=== PATIENT | male | born 1960 | race American Indian/Alaskan Native ===

== ENCOUNTER 2020-11-26 11:12 | Emergency (ER) | payer MEDICARE ==
[2020-11-26] MEDS ORDERED: ASPIRIN 325 MG TAB PO ONE (11:27)
--- NOTE | 2020-11-26 12:00 | XRay Report ---
XR chest routine 2V INDICATION / CLINICAL INFORMATION: CP WITH SOB COMPARISON: None available. FINDINGS: SUPPORT DEVICES: None. HEART / MEDIASTINUM: No significant abnormality. LUNGS / PLEURA: Lungs are clear. Costophrenic sulci are sharp. No pneumothorax. ADDITIONAL FINDINGS: No significant additional findings. IMPRESSION: 1. No acute findings. Signer Name: Sher Mcmullen MD Signed: 11/26/2020 11:55 AM Workstation Name: [id number]
[2020-11-26 13:12] LABS: Basophils # (Auto) 0.2 K/mm3 (0.0-0.1); Basophils % (Auto) 2.2 % (0.0-1.8); Eosinophils # (Auto) 0.3 K/mm3 (0.0-0.4); Eosinophils % (Auto) 3.7 % (0.0-4.3); Hematocrit 39.5 % (35.5-45.6); Hemoglobin 13.2 gm/dl (11.8-15.2); Lymphocytes # (Auto) 2.2 K/mm3 (1.2-5.4); Lymphocytes % (Auto) 31.4 % (13.4-35.0); Mean Corpuscular HGB Conc 34 % (32-34); Mean Corpuscular Volume 95 fl (84-94); Monocytes # (Auto) 0.4 K/mm3 (0.0-0.8); Monocytes % (Auto) 6.3 % (0.0-7.3); Platelet Count 185 K/mm3 (140-440); Red Blood Count 4.15 M/mm3 (3.65-5.03); Red Cell Distribution Width 15.3 % (13.2-15.2)
[2020-11-26 13:23] LABS: INR 1.09 (0.87-1.13)
[2020-11-26 13:24] LABS: Alanine Aminotransferase 11 units/L (7-56); Albumin 4.3 g/dL (3.9-5); BUN/Creatinine Ratio 16; Blood Urea Nitrogen 13 mg/dL (9-20); Calcium 8.7 mg/dL (8.4-10.2); Hemolysis Index 2
--- NOTE | 2020-11-26 17:39 | Event Note ---
ED Screening Note Date of service: 11/26/20 Time: 17:37 ED Screening Note: 60-year-old male patient with history of hypertension, hyperlipidemia, diabetes, and asthma presents to the emergency department with complaints of chest tightness radiating to his right upper extremity starting this morning. No known history of stroke or MT. Takes aspirin daily. States he has been compliant with his diabetes medications. General: Awake, appropriately interactive, no acute distress. Neck: Supple. Full range of motion intact. Cardiovascular: Normal peripheral perfusion. Pulmonary: No respiratory distress. Patient is speaking normally without use of accessory muscles. Skin: No apparent rashes or lesions. Neurological: No facial asymmetry. Speech is clear. Follows commands. Patient is alert and oriented. Musculoskeletal: Moves all four extremities spontaneously with normal range of motion. Psych: Cooperative. Appropriate mood and affect. EKG, labs, aspirin, and chest x-ray ordered by assembler surgical garment prior to MSE. I have greeted and performed a focused rapid initial assessment of this patient. A comprehensive ED assessment and evaluation of the patient, analysis of all test results, and completion of the medical decision-making process will be conducted by additional ED providers. This initial assessment/diagnostic orders/clinical plan/treatment(s) is/are subject to change based on patients health status, clinical progression and re-assessment. Further treatment and workup at subsequent clinical provider's discretion. Patient/guardian urged not to elope from the ED as their condition may be serious if not clinically assessed and managed.
--- NOTE | 2020-11-27 01:41 | Emergency Department Report ---
ED Shortness of Breath HPI - General Chief Complaint: Dyspnea/Respdistress Stated Complaint: SOB Time Seen by Provider: 11/27/20 01:30 Source: patient, EMS Mode of arrival: Ambulatory Limitations: No Limitations - History of Present Illness Initial Comments: 60-year-old male, history of hypertension, diabetes, asthma, presents to ED with shortness of breath since yesterday morning. She reports wheezing and chest tightness that he feels is related to his asthma. Patient states he ran out of his albuterol and Atrovent. States it was supposed to have been filled at [facility], however his prescriptions were transferred to another pharmacy and he was unable to pick his medications up. Patient denies any cough or fever, leg pain or swelling. Patient states he has not yet received his COVID-19 vaccine. Patient has been in the waiting room x14 hours. States he is feeling better at this time. MD Complaint: shortness of breath -: days(s) (1) Severity: moderate Consistency: now resolved Improves With: rest Worsens With: exertion Known History Of: asthma Treatments Prior to Arrival: none - Related Data Allergies Allergy/AdvReac Type Severity Reaction Status Date / Time Penicillins Allergy Shortness Verified 11/26/20 11:26 of Breath ED Review of Systems ROS: Stated complaint: SOB Other details as noted in HPI Comment: All other systems reviewed and negative Constitutional: denies: chills, fever Respiratory: shortness of breath, wheezing. denies: cough ED Past Medical Hx - Past Medical History Hx Hypertension: Yes Hx Congestive Heart Failure: Yes Hx Diabetes: Yes Hx Asthma: Yes - Surgical History Additional Surgical History: THROAT - Social History Smoking Status: Never Smoker Substance Use Type: None ED Physical Exam - General Limitations: No Limitations General appearance: alert, in no apparent distress - Head Head exam: Present: atraumatic, normocephalic - Eye Eye exam: Present: normal appearance, EOMI - ENT ENT exam: Present: mucous membranes moist - Neck Neck exam: Present: normal inspection - Respiratory Respiratory exam: Present: normal lung sounds bilaterally. Absent: respiratory distress - Cardiovascular Cardiovascular Exam: Present: regular rate, normal rhythm - GI/Abdominal GI/Abdominal exam: Present: soft. Absent: distended, tenderness - Extremities Exam Extremities exam: Present: normal inspection - Neurological Exam Neurological exam: Present: alert, oriented X3, other (Tremor noted to the right upper extremity) - Psychiatric Psychiatric exam: Present: normal affect, normal mood - Skin Skin exam: Present: warm, dry, intact, normal color ED Course Vital Signs 11/26/20 11/27/20 11:21 01:56 Temperature 98.8 F Pulse Rate 85 72 Respiratory 20 17 Rate Blood Pressure 127/69 Blood Pressure 135/70 [Left] O2 Sat by Pulse 99 97 Oximetry ED Medical Decision Making - Lab Data Result diagrams: 11/26/20 12:33 11/26/20 12:33 - EKG Data -: EKG Interpreted by Pr EKG shows normal: sinus rhythm, axis, intervals, QRS complexes, ST-T waves Rate: normal - EKG Data Interpretation: no acute changes, other (Old anterior infarct, PVCs present) - Radiology Data Radiology results: report reviewed, image reviewed - Medical Decision Making 60-year-old male presents to ED with wheezing and chest tightness secondary to his asthma. Patient is feeling much better at this time. Lung sounds are clear. Patient is in no respiratory distress. O2 sats are normal. Chest x-ray and labs, including troponin x3, are unremarkable. Patient will be discharged at this time. Patient reports he currently has a prescription being filled for albuterol. States he has to pick it up from the pharmacy. Return precautions given. - Differential Diagnosis Asthma, ACS, pneumonia Critical care attestation.: If time is entered above; I have spent that time in minutes in the direct care of this critically ill patient, excluding procedure time. ED Disposition Clinical Impression: Asthma Disposition: DC-01 TO HOME OR SELFCARE Is pt being admited?: No Condition: Stable Instructions: Asthma, Adult, Asthma (ED) Referrals: PRIMARY MD STACIE [Primary Care Provider] - 3-5 Days [facility] [Provider Group] - 3-5 Days Time of Disposition: 02:00
[2020-11-27 01:59] VITALS: BP 135/70
--- NOTE | 2020-11-27 09:43 | Electrocardiograph Report ---
[facility] Test Date: 2020-11-26 Test Time: 11:26:38 Pat Name: NATALIE GOMEZ Department: Room: Gender: M Brand Coordinator: NITIN : 1960 Requested By: ED DOC Order Number: [id number] Reading MD: Philip Rivera Measurements Intervals [place] Rate: 86 P: 54 [place]: 179 QRS: -19 QRSD: 101 T: 60 QT: 396 QTc: 475 Interpretive Statements Sinus rhythm Multiple ventricular premature complexes Probable left atrial enlargement Anterior infarct, old No previous ECG available for comparison Electronically Signed On 11-27-2020 9:43:05 EDT by Philip Rivera
== END 2020-11-27 02:48 | disposition home or self-care (01) ==
LOC: ED 11:12
DX: J45.909 Unspecified asthma, uncomplicated (principal); I10 Essential (primary) hypertension; E11.8 Type 2 diabetes mellitus with unspecified complications; I50.9 Heart failure, unspecified; Z98.890 Other specified postprocedural states
CPT/HCPCS: 36415; 71046; 80053; 83880; 84484; 85025; 85610; 93005; 99284

== ENCOUNTER 2021-07-24 09:15 | Observation (INO) | payer MEDICARE ==
[2021-07-24] MEDS ORDERED: SODIUM CHLORIDE 0.9% 500 ML 500 ML IV ONE (09:46)
--- NOTE | 2021-07-24 09:53 | Emergency Department Report ---
ED General Adult HPI - General Chief complaint: Hyperglycemia Stated complaint: HYPERGLYCEMIA Source: EMS Mode of arrival: Ambulatory Limitations: No Limitations - History of Present Illness Initial comments: Patient is a 60-year-old male with past medical history of CHF, previous pericardial effusion requiring pericardiocentesis, diabetes who presents emergency department with complaint of hyperglycemia in the setting of being out of his insulin medication for the past few months. Patient also has a history of schizophrenia. He notes he also has some mild shortness of breath but denies any leg swelling recently. He is not currently having chest pain. Severity scale (0 -10): 0 - Related Data Home Medications Medication Instructions Recorded Confirmed Last Taken Albuterol Sulfate [Proair 90 mcg IH Q6H PRN 07/24/21 07/24/21 Unknown Digihaler] Amiodarone HCl [Amiodarone 100 MG 400 mg PO 07/24/21 Unknown TAB] Amlodipine Besylate [Norvasc] 10 mg PO 07/24/21 Unknown Apixaban [Eliquis] 5 mg PO BID 07/24/21 07/24/21 Unknown Atorvastatin [Lipitor Tab] 40 mg PO QHS 07/24/21 07/24/21 Unknown Brimonidine Tartrate [Brimonidine 1 drop OD Q8HR 07/24/21 07/24/21 Unknown Tartrate 0.2%] Indomethacin [Indocin] 25 mg PO BID 07/24/21 07/24/21 Unknown Allergies Allergy/AdvReac Type Severity Reaction Status Date / Time Penicillins Allergy Shortness Verified 07/24/21 09:37 of Breath ED Review of Systems ROS: Stated complaint: HYPERGLYCEMIA Other details as noted in HPI Constitutional: denies: chills, fever Eyes: denies: eye pain, eye discharge, vision change ENT: denies: ear pain, throat pain Respiratory: SOB at rest. denies: cough, shortness of breath, wheezing Cardiovascular: denies: chest pain Endocrine: no symptoms reported Gastrointestinal: denies: abdominal pain, nausea, vomiting Genitourinary: denies: urgency, dysuria Musculoskeletal: denies: back pain, joint swelling, arthralgia Skin: as per HPI Neurological: denies: headache, weakness, paresthesias Psychiatric: denies: anxiety, depression Hematological/Lymphatic: denies: easy bleeding, easy bruising ED Past Medical Hx - Past Medical History Hx Hypertension: Yes Hx Congestive Heart Failure: Yes Hx Diabetes: Yes Hx Asthma: Yes - Surgical History Additional Surgical History: THROAT - Social History Smoking Status: Never Smoker Substance Use Type: None - Medications Home Medications: Home Medications Medication Instructions Recorded Confirmed Last Taken Type Albuterol Sulfate [Proair 90 mcg IH Q6H PRN 07/24/21 07/24/21 Unknown History Digihaler] Amiodarone HCl [Amiodarone 100 MG 400 mg PO 07/24/21 Unknown History TAB] Amlodipine Besylate [Norvasc] 10 mg PO 07/24/21 Unknown History Apixaban [Eliquis] 5 mg PO BID 07/24/21 07/24/21 Unknown History Atorvastatin [Lipitor Tab] 40 mg PO QHS 07/24/21 07/24/21 Unknown History Brimonidine Tartrate [Brimonidine 1 drop OD Q8HR 07/24/21 07/24/21 Unknown History Tartrate 0.2%] Indomethacin [Indocin] 25 mg PO BID 07/24/21 07/24/21 Unknown History ED Physical Exam - General Limitations: No Limitations General appearance: alert, in no apparent distress - Head Head exam: Present: atraumatic, normocephalic - Eye Eye exam: Present: normal appearance - ENT ENT exam: Present: mucous membranes moist - Neck Neck exam: Present: normal inspection - Respiratory Respiratory exam: Present: normal lung sounds bilaterally. Absent: respiratory distress - Cardiovascular Cardiovascular Exam: Present: regular rate, normal rhythm. Absent: systolic murmur, diastolic murmur, rubs, gallop - GI/Abdominal GI/Abdominal exam: Present: soft, normal bowel sounds - Rectal Rectal exam: Present: deferred - Extremities Exam Extremities exam: Present: normal inspection - Back Exam Back exam: Present: normal inspection - Neurological Exam Neurological exam: Present: alert, oriented X3 - Psychiatric Psychiatric exam: Present: normal affect, normal mood - Skin Skin exam: Present: warm, dry, intact, normal color. Absent: rash ED Course Vital Signs 07/24/21 07/24/21 07/24/21 09:20 09:26 09:29 Temperature 98.4 F Pulse Rate 101 H 94 H 91 H Respiratory 18 15 Rate Blood Pressure Blood Pressure 116/70 [Left] O2 Sat by Pulse 97 Oximetry 07/24/21 07/24/21 07/24/21 10:01 11:01 11:47 Temperature Pulse Rate 87 84 Respiratory 18 16 Rate Blood Pressure 100/66 117/72 Blood Pressure [Left] O2 Sat by Pulse 92 96 96 Oximetry 07/24/21 07/24/21 07/24/21 12:01 14:01 16:01 Temperature Pulse Rate 82 82 88 Respiratory 20 19 21 Rate Blood Pressure 119/79 119/79 117/76 Blood Pressure [Left] O2 Sat by Pulse 92 94 92 Oximetry 07/24/21 07/24/21 07/24/21 18:01 20:01 20:58 Temperature 98.4 F Pulse Rate 84 79 Respiratory 14 16 Rate Blood Pressure 109/72 105/72 Blood Pressure [Left] O2 Sat by Pulse 94 94 Oximetry - Reevaluation(s) Reevaluation #1: 07/24/21 11:30 Patient's chest x-ray does not show any evidence of pulmonary edema. There is no obvious lower extremity edema. I will give an additional 500 cc of IV fluids. Patient's blood sugar is in the 700s. He has an elevated anion gap but his CO2 is 22. We are still pending a venous pH. I have ordered subcu insulin and a repeat [id number] blood sugar after the first set of fluids. Patient likely to be admitted for further management. 07/24/21 13:15 I discussed with hospitalist who recommended starting an insulin drip for likely HHS. Patient to be admitted. ICU. ED Medical Decision Making - Lab Data Result diagrams: 07/24/21 10:13 07/24/21 23:33 - EKG Data -: EKG Interpreted by [facility] EKG shows normal: sinus rhythm Rate: normal No standard instances Omro/QRS: left axis deviation Qtc: prolonged - EKG Data Interpretation: other - Radiology Data Radiology results: report reviewed, image reviewed - Medical Decision Making This is a 60-year-old male with history of diabetes here with hyperglycemia. Patient has not had his insulin in the past few days. He also has history of CHF and pericardial effusion requiring pericardiocentesis. Plan for full cardiac exam given history of CHF and pericardial effusion. We will also evaluate for possible DKA versus HHS versus hyperglycemia. We will start gentle fluid bolus prior to labs. Disposition pending work-up. Critical care attestation.: If time is entered above; I have spent that time in minutes in the direct care of this critically ill patient, excluding procedure time. ED Disposition Clinical Impression: Hyperglycemia, Weakness Disposition: 09 ADMITTED INPATIENT Is pt being admited?: Yes Does the pt Need Aspirin: No Condition: Stable
[2021-07-24 10:51] LABS: Basophils # (Auto) 0.1 K/mm3 (0.0-0.1); Basophils % (Auto) 1.2 % (0.0-1.8); Eosinophils # (Auto) 0.7 K/mm3 (0.0-0.4); Eosinophils % (Auto) 7.9 % (0.0-4.3); Hematocrit 34.4 % (35.5-45.6); Lymphocytes # (Auto) 1.4 K/mm3 (1.2-5.4); Lymphocytes % (Auto) 17.4 % (13.4-35.0); Mean Corpuscular HGB Conc 32 % (32-34); Mean Corpuscular Volume 96 fl (84-94); Monocytes # (Auto) 0.5 K/mm3 (0.0-0.8); Monocytes % (Auto) 5.7 % (0.0-7.3); Platelet Count 380 K/mm3 (140-440); Red Blood Count 3.58 M/mm3 (3.65-5.03); Red Cell Distribution Width 19.3 % (13.2-15.2)
[2021-07-24 11:05] LABS: Alanine Aminotransferase 9 units/L (7-56); Albumin 3.6 g/dL (3.9-5); BUN/Creatinine Ratio 19; Blood Urea Nitrogen 21 mg/dL (9-20); Calcium 9.4 mg/dL (8.4-10.2); Hemolysis Index 9
[2021-07-24] MEDS ORDERED: MAGNESIUM SULFATE 2 GM/50 ML BAG IV ONE (11:25)
[2021-07-24] MEDS ORDERED: INSULIN NPH/REGULAR 70/30 INJ SUB-Q ONE (12:00)
--- NOTE | 2021-07-24 12:19 | XRay Report ---
CHEST 1 VIEW INDICATION: sob. COMPARISON: 11/26/2020 FINDINGS: Support devices: None. Heart: Mild cardiomegaly, new since the previous exam. Lungs/Pleura: The right lung and left upper lobe are clear. There is poor visualization of the left l ower lobe due to the heart. Small left lower lobe opacity or small left pleural effusion cannot be en tirely excluded. No pneumothorax. Additional findings: None. IMPRESSION: New mild cardiomegaly. Possible small infiltrate/atelectasis or effusion at the left lung base. Signer Name: Jamir Wood Jr, MD Signed: 07/24/2021 12:10 PM Workstation Name: [id number]
[2021-07-24] MEDS ORDERED: DEXTROSE 50% IN WATER (25GM) 50 ML SYRINGE IV PRN (12:36)
[2021-07-24] MEDS ORDERED: INSULIN REGULAR, HUMAN 100 UNITS in SODIUM CHLORIDE 0.9% 99 ML IV SCH (13:00)
[2021-07-24] MEDS ORDERED: D5W/0.45% NACL/KCL 20 MEQ 20 MEQ/1,000 ML BAG IV SCH ×2 (13:00→23:00)
[2021-07-24 13:18] LABS: Bilirubin,Urine NEG (Negative); Blood,Urine NEG (Negative); Color,Urine Straw (Yellow); Mucus,Urine FEW /HPF; Protein,Urine <15 mg/dL mg/dL (Negative); Urobilinogen,Urine < 2.0 mg/dL (<2.0); WBC,Urine < 1.0 /HPF (0.0-6.0)
[2021-07-24 14:00] LABS: BUN/Creatinine Ratio 19; Blood Urea Nitrogen 21 mg/dL (9-20); Calcium 9.6 mg/dL (8.4-10.2); Hemolysis Index 3
[2021-07-24 15:23] LABS: BUN/Creatinine Ratio 21; Blood Urea Nitrogen 21 mg/dL (9-20); Calcium 9.5 mg/dL (8.4-10.2); Hemolysis Index 22
--- NOTE | 2021-07-24 16:33 | History and Physical Report ---
History of Present Illness Date of examination: 07/24/21 Date of admission: 07/24/2021 Chief complaint: Complains of high blood glucose levels and nausea and weakness for 1 week History of present illness: 60-year-old male with history of hypertension, congestive heart failure, insulin-dependent diabetes and asthma comes into emergency room for feeling weak and nauseous. Also high blood glucose levels of more 500 100s meter. Feels thirsty and increasing urination. Nausea present but no vomiting. Feels very weak. No fever or chills. Not taking his insulin for the last couple of weeks. - Past Medical History --Hypertension: Yes --Congestive Heart Failure: Yes --Diabetes: Yes --Asthma: Yes - Surgical History --Additional Surgical History: THROAT - Social History --Smoking Status: Never Smoker --Substance Use Type: None Review of Systems ROS: Stated complaint: HYPERGLYCEMIA Other details as noted in HPI Constitutional: denies: chills, fever Eyes: denies: eye pain, eye discharge, vision change ENT: denies: ear pain, throat pain Respiratory: SOB at rest. denies: cough, shortness of breath, wheezing Cardiovascular: denies: chest pain Endocrine: no symptoms reported Gastrointestinal: denies: abdominal pain, nausea, vomiting Genitourinary: denies: urgency, dysuria Musculoskeletal: denies: back pain, joint swelling, arthralgia Skin: as per HPI Neurological: denies: headache, weakness, paresthesias Psychiatric: denies: anxiety, depression Hematological/Lymphatic: denies: easy bleeding, easy bruising Medications and Allergies Allergies Allergy/AdvReac Type Severity Reaction Status Date / Time Penicillins Allergy Shortness Verified 07/24/21 09:37 of Breath Home Medications Medication Instructions Recorded Confirmed Last Taken Type Albuterol Sulfate [Proair 90 mcg IH Q6H PRN 07/24/21 07/24/21 Unknown History Digihaler] Amiodarone HCl [Amiodarone 100 MG 400 mg PO 07/24/21 Unknown History TAB] Amlodipine Besylate [Norvasc] 10 mg PO 07/24/21 Unknown History Apixaban [Eliquis] 5 mg PO BID 07/24/21 07/24/21 Unknown History Atorvastatin [Lipitor Tab] 40 mg PO QHS 07/24/21 07/24/21 Unknown History Brimonidine Tartrate [Brimonidine 1 drop OD Q8HR 07/24/21 07/24/21 Unknown History Tartrate 0.2%] Indomethacin [Indocin] 25 mg PO BID 07/24/21 07/24/21 Unknown History Active Meds: Active Medications Dextrose (Dextrose 50% In Water (25gm) 50 Ml Syringe) 0 ml IV Q30MIN PRN; Protocol PRN Reason: Hypoglycemia Insulin Human Regular 100 (units/ Sodium Chloride) 100 mls @ 1 mls/hr IV TITR WAI; Protocol Last Titration: 07/24/21 15:42 Dose: 8 units/hr, 8 mls/hr Potassium Chloride/Dextrose/Sod Cl (D5w/0.45% Nacl/Kcl 20 Meq) 20 meq in 1,000 mls @ 125 mls/hr IV DIRECT [facility]AI Exam - Constitutional Vitals: Temp Pulse Resp BP Pulse Ox 98.4 F 82 19 119/79 94 07/24/21 09:20 07/24/21 14:01 07/24/21 14:01 07/24/21 14:01 07/24/21 14:01 General appearance: Present: no acute distress, well-nourished - EENT Eyes: Present: PERRL ENT: hearing intact, clear oral mucosa, other (Dry mucous membranes) - Neck Neck: Present: supple, normal ROM - Respiratory Respiratory effort: normal Respiratory: bilateral: CTA - Cardiovascular Heart rate: 98 Rhythm: regular Heart Sounds: Present: S1 & S2. Absent: rub, click - Extremities Extremities: pulses symmetrical, No edema Peripheral Pulses: within normal limits - Abdominal General gastrointestinal: Present: soft, non-tender, non-distended, normal bowel sounds Male genitourinary: Present: normal - Integumentary Integumentary: Present: clear, warm, dry - Musculoskeletal Musculoskeletal: gait normal, strength equal bilaterally - Psychiatric Psychiatric: appropriate mood/affect, intact judgment & insight - Neurologic Neurologic: CNII-XII intact, moves all extremities, gait normal HEART Score - HEART Score Troponin: Troponin T < 0.010 ng/mL (0.00-0.029) 07/24/21 10:13 Results - Labs CBC & Chem 7: 07/24/21 10:13 07/24/21 23:33 Labs: Laboratory Last Values WBC 8.3 K/mm3 (4.5-11.0) 07/24/21 10:13 RBC 3.58 M/mm3 (3.65-5.03) L 07/24/21 10:13 Hgb 11.0 gm/dl (11.8-15.2) L 07/24/21 10:13 Hct 34.4 % (35.5-45.6) L 07/24/21 10:13 MCV 96 fl (84-94) H 07/24/21 10:13 MCH 31 pg (28-32) 07/24/21 10:13 MCHC 32 % (32-34) 07/24/21 10:13 RDW 19.3 % (13.2-15.2) H 07/24/21 10:13 Plt Count 380 K/mm3 (140-440) 07/24/21 10:13 Lymph % (Auto) 17.4 % (13.4-35.0) 07/24/21 10:13 [place] % (Auto) 5.7 % (0.0-7.3) 07/24/21 10:13 Eos % (Auto) 7.9 % (0.0-4.3) H 07/24/21 10:13 Baso % (Auto) 1.2 % (0.0-1.8) 07/24/21 10:13 Lymph # (Auto) 1.4 K/mm3 (1.2-5.4) 07/24/21 10:13 [place] # (Auto) 0.5 K/mm3 (0.0-0.8) 07/24/21 10:13 Eos # (Auto) 0.7 K/mm3 (0.0-0.4) H 07/24/21 10:13 Baso # (Auto) 0.1 K/mm3 (0.0-0.1) 07/24/21 10:13 Seg Neutrophils % 67.8 % (40.0-70.0) 07/24/21 10:13 Seg Neutrophils # 5.6 K/mm3 (1.8-7.7) 07/24/21 10:13 VBG pH 7.409 (7.320-7.420) 07/24/21 12:17 Sodium 134 mmol/L (137-145) L 07/24/21 14:56 Potassium 4.5 mmol/L (3.6-5.0) 07/24/21 14:56 Chloride 96.2 mmol/L (98-107) L 07/24/21 14:56 Carbon Dioxide 23 mmol/L (22-30) 07/24/21 14:56 Anion Gap 19 mmol/L 07/24/21 14:56 BUN 21 mg/dL (9-20) H 07/24/21 14:56 Creatinine 1.0 mg/dL (0.8-1.3) 07/24/21 14:56 Estimated GFR > 60 ml/min 07/24/21 14:56 BUN/Creatinine Ratio 21 % 07/24/21 14:56 Glucose 573 mg/dL (75-100) H* 07/24/21 14:56 POC Glucose 456 mg/dL (70-105) H 07/24/21 15:37 Ketones Quantitative Negative (Negative) 07/24/21 10:13 Calcium 9.5 mg/dL (8.4-10.2) 07/24/21 14:56 Phosphorus 3.50 mg/dL (2.5-4.5) 07/24/21 12:57 Magnesium 2.30 mg/dL (1.7-2.3) 07/24/21 12:57 Total Bilirubin 0.20 mg/dL (0.1-1.2) 07/24/21 10:13 AST 10 units/L (5-40) 07/24/21 10:13 ALT 9 units/L (7-56) 07/24/21 10:13 Alkaline Phosphatase 97 units/L (35-129) 07/24/21 10:13 Troponin T < 0.010 ng/mL (0.00-0.029) 07/24/21 10:13 NT-Pro-B Natriuret Pep 70.66 pg/mL (0-900) 07/24/21 10:13 Total Protein 7.4 g/dL (6.3-8.2) 07/24/21 10:13 Albumin 3.6 g/dL (3.9-5) L 07/24/21 10:13 Albumin/Globulin Ratio 0.9 % 07/24/21 10:13 Urine Color Straw (Yellow) 07/24/21 13:02 Urine Turbidity Clear (Clear) 07/24/21 13:02 Urine pH 6.0 (5.0-7.0) 07/24/21 13:02 Ur Specific [place] 1.028 (1.003-1.030) 07/24/21 13:02 Urine Protein <15 mg/dl mg/dL (Negative) 07/24/21 13:02 Urine Glucose (UA) >=500 mg/dL (Negative) 07/24/21 13:02 Urine Ketones Neg mg/dL (Negative) 07/24/21 13:02 Urine Blood Neg (Negative) 07/24/21 13:02 Urine Nitrite Neg (Negative) 07/24/21 13:02 Urine Bilirubin Neg (Negative) 07/24/21 13:02 Urine Urobilinogen < 2.0 mg/dL (<2.0) 07/24/21 13:02 Ur Leukocyte Esterase Neg (Negative) 07/24/21 13:02 Urine WBC (Auto) < 1.0 /HPF (0.0-6.0) 07/24/21 13:02 Urine RBC (Auto) 2.0 /HPF (0.0-6.0) 07/24/21 13:02 U Epithel Cells (Auto) < 1.0 /HPF (0-13.0) 07/24/21 13:02 Urine Mucus Few /HPF 07/24/21 13:02 Short CBC 07/24/21 Range/Units 10:13 WBC 8.3 (4.5-11.0) K/mm3 Hgb 11.0 L (11.8-15.2) gm/dl Hct 34.4 L (35.5-45.6) % Plt Count 380 (140-440) K/mm3 BMP 07/24/21 07/24/21 07/24/21 10:13 12:57 14:56 Sodium 130 L 133 L 134 L Potassium 4.8 4.9 4.5 Chloride 92.2 L 94.8 L 96.2 L Carbon Dioxide 22 23 23 BUN 21 H 21 H 21 H Creatinine 1.1 1.1 1.0 Glucose 711 H* 620 H* 573 H* Calcium 9.4 9.6 9.5 07/24/21 07/24/21 19:01 23:33 Sodium 140 141 Potassium 3.7 4.1 Chloride 102.7 104.0 Carbon Dioxide 24 26 BUN 23 H 24 H Creatinine 1.0 1.0 Glucose 143 H 263 H Calcium 9.8 8.7 Cardiac Enzymes 07/24/21 Range/Units 10:13 Troponin T < 0.010 (0.00-0.029) ng/mL Liver Function 07/24/21 Range/Units 10:13 Total Bilirubin 0.20 (0.1-1.2) mg/dL AST 10 (5-40) units/L ALT 9 (7-56) units/L Alkaline Phosphatase 97 (35-129) units/L Albumin 3.6 L (3.9-5) g/dL Urine 07/24/21 Range/Units 13:02 Urine Color Straw (Yellow) Urine pH 6.0 (5.0-7.0) Ur Specific [place] 1.028 (1.003-1.030) Urine Protein <15 mg/dl (Negative) mg/dL Urine Glucose (UA) >=500 (Negative) mg/dL - Imaging and Cardiology Imaging and Cardiology: Chest x-ray New mild cardiomegaly. Possible small infiltrates/atelectasis or effusion at the left lung base. Assessment and Plan Assessment and plan: Critical care statement The high probability OF a clinically significant sudden or life-threatening de terioration of the cardiorespiratory system and endocrine system required my full and direct attention, intervention and postoperative management. The aggregate critical care time was 40 minutes. The time is in addition to time spent performing reported procedures but includes the followin: Data review and interpretation 2: Patient assessment and monitoring of vital signs 3: Documentation 4:: Medication orders and management Advance Directives: Yes (Full code) VTE prophylaxis?: Chemical Plan of care discussed with patient/family: Yes - Patient Problems (1) Hyperosmolar non-ketotic state due to type 2 diabetes mellitus Current Visit: Yes Status: Acute Plan to address problem: Blood glucose levels of 711 No ketones Anion gap is 21 Sodium is 130 IV insulin and IV fluids Patient to be started on long-acting and short acting insulin Defer to the primary care team Check A1c (2) Hyponatremia Current Visit: Yes Status: Acute Plan to address problem: Should correct with correction of blood glucose levels (3) Hypomagnesemia Current Visit: Yes Status: Acute Plan to address problem: Supplemented (4) Malnutrition Current Visit: Yes Status: Chronic Qualifiers: Protein-calorie malnutrition severity: mild Plan to address problem: Albumin of 3.6 Dietary supplement X1 (5) DVT prophylaxis Current Visit: Yes Status: Acute Plan to address problem: On anticoagulation GI prophylaxis (6) Advance care planning Current Visit: Yes Status: Acute Plan to address problem: Disease education conducted: Care plan discussed, diagnosis discussed, prognosis discussed. Patient is full code. Patient acknowledges understanding and agreement with care plan. +30 minutes.
[2021-07-24] MEDS ORDERED: ACETAMINOPHEN 325 MG TAB PO PRN (16:35)
[2021-07-24] MEDS ORDERED: METOCLOPRAMIDE 10 MG/2 ML INJ IV PRN (16:35)
[2021-07-24] MEDS ORDERED: ONDANSETRON 4 MG/2 ML INJ IV PRN (16:35)
[2021-07-24] MEDS ORDERED: MORPHINE 2 MG/1 ML INJ IV PRN (16:35)
[2021-07-24] MEDS ORDERED: D5W/0.9% NACL 1,000 ML IV SCH (18:00)
[2021-07-24 19:31] LABS: BUN/Creatinine Ratio 23; Blood Urea Nitrogen 23 mg/dL (9-20); Calcium 9.8 mg/dL (8.4-10.2); Hemolysis Index 8
[2021-07-24] MEDS: FAMOTIDINE 20 MG/2 ML INJ IV SCH (23:19)
[2021-07-24] MEDS: HEPARIN 5,000 UNIT/1 ML VIAL SUB-Q SCH (23:40)
[2021-07-25 00:08] LABS: BUN/Creatinine Ratio 24; Blood Urea Nitrogen 24 mg/dL (9-20); Calcium 8.7 mg/dL (8.4-10.2); Hemolysis Index 5
[2021-07-25] MEDS ORDERED: MAGNESIUM SULFATE 2 GM/50 ML BAG IV ONE (06:27)
[2021-07-25 06:30] LABS: Alanine Aminotransferase 7 units/L (7-56); Albumin 3.3 g/dL (3.9-5); BUN/Creatinine Ratio 28; Blood Urea Nitrogen 22 mg/dL (9-20); Calcium 8.3 mg/dL (8.4-10.2); Hemolysis Index 3
[2021-07-25] MEDS ORDERED: INSULIN GLARGINE 100 UNITS/ML SUB-Q SCH (09:00)
--- NOTE | 2021-07-25 09:17 | Electrocardiograph Report ---
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
--- NOTE | 2021-07-25 09:29 | Discharge Summary ---
Providers - Providers Date of Admission: 07/24/21 16:35 Date of discharge: 07/25/21 Attending physician: MARINA BURT MD 07/24/21 12:36 Consult to Dietitian/Nutrition [CONS] Routine Physician Instructions: Reason For Exam: DKA Reason for Consult: Nutrition Recommendations Reason for Consult: Diet education Consult to Physician [CONS] Routine Comment: Consulting Provider: ISIAH FULLER Physician Instructions: Reason For Exam: ICU for HHS Hospitalization Condition: Stable Hospital course: This is a 60-year-old male with HTN, CHF, asthma, diabetes, schizoaffective disorder, depression and asthma who presented to the emergency department on 07/24 with complaints of high blood glucose levels, nausea, polydipsia and polyuria and weakness for a week and indicated that he did not take his insulin for the past couple weeks. Work-up in the emergency department showed lab work consistent with HHNK started on insulin drip and admitted to the ICU with c onsult to [facility]. This morning patient's anion gap is closed and has been transitioned to SSI, long-acting insulin/CC diet. Patient will be discharged today. He will need to follow-up with his PCP, mental health provider, vocal teacher. He will need to resume his home medications. A/P Neuro: h/o schizoaffective disorder, depression -Resume home antipsychotics and antidepressants -Follow-up with mental provider as needed Cardio: h/o CHF, HTN -Resume home cardioprotective and antihypertensive regimen. -Follow-up with PCP/vocal teacher -Blood pressure monitoring per PCP instruction Respiratory: h/o asthma -Resume home pulmonary regimen -Follow-up with organic preparation technician GI: Protein calorie malnutrition -Resume cardiac consistent carbohydrate diet Endo: s/p HHNK, h/o IDDM, ?hypothyriodism -Lantus 20 units every AM -Blood glucose monitoring per PCP instructions -Resume home ?Synthroid (pt states he uses synthriod but not listed in home meds record) -Encourage medical compliance -Follow up with PCP Disposition: HOME / SELF CARE / HOMELESS Final Discharge Diagnosis (Prints w/discharge instructions): HHNK Time spent for discharge: 45 Core Measure Documentation - Palliative Care Palliative Care/ Comfort Measures: Not Applicable - Core Measures Any of the following diagnoses?: history only Exam - Constitutional Vitals: Temp Pulse Resp BP Pulse Ox 97.7 F 70 16 118/70 95 07/25/21 08:04 07/25/21 07:20 07/25/21 07:20 07/25/21 07:20 07/25/21 07:20 General appearance: Present: no acute distress - EENT Eyes: Present: PERRL, EOM intact ENT: hearing intact, clear oral mucosa, dentition normal - Neck Neck: Present: normal ROM - Respiratory Respiratory effort: normal Respiratory: bilateral: CTA - Cardiovascular Rhythm: regular Heart Sounds: Present: S1 & S2. Absent: systolic murmur, diastolic murmur - Extremities Extremities: no ischemia, pulses intact, pulses symmetrical, No edema, normal temperature, normal color, Full ROM Peripheral Pulses: within normal limits - Abdominal General gastrointestinal: Present: soft, non-tender, non-distended, normal bowel sounds - Integumentary Integumentary: Present: warm, dry - Musculoskeletal Musculoskeletal: strength equal bilaterally - Psychiatric Psychiatric: appropriate mood/affect, cooperative - Neurologic Neurologic: CNII-XII intact, no focal deficits, moves all extremities - Allied Health Allied health notes reviewed: nursing, RT, social work Plan Activity: advance as tolerated Diet: low cholesterol, low salt, diabetic, low carbohydrate Special Instructions: record daily weights, record daily BP diary, record blood sugar diary [facility] - 3-5 Days Prescriptions: Insulin Glargine [Lantus VIAL] 20 units SUB-Q QAMDIAB #1 vial Syringe & Needle,Insulin,1 ml [Ultra Comfort] 1 each MC BID #60 Other Discharge Orders: Glucometer (Amb) Location: None Selected Glucometer supplies[Amb] Location: None Selected Test Strips for Blood Sugar Monitoring Location: None Selected
[2021-07-25] MEDS: FAMOTIDINE 20 MG/2 ML INJ IV SCH (09:33)
[2021-07-25] MEDS: HEPARIN 5,000 UNIT/1 ML VIAL SUB-Q SCH (09:33)
--- NOTE | 2021-07-25 11:18 | Consultation ---
History of Present Illness - Reason for Consult Consult date: 07/25/21 HHNK Requesting physician: ANASTASIA KEBEDE - History of Present Illness 60 y/o male with known Diabetes and CHF admitted via ED yesterday for HHNK and need for insulin drip. ER did not want to aggressively hydrate given history of CHF so gave one bolus and then started on IV insulin. This am off drip, sugars are better and discharge summary has been started by IMS. Past History Past Medical History: diabetes, heart failure, hypertension Medications and Allergies Allergies Allergy/AdvReac Type Severity Reaction Status Date / Time Penicillins Allergy Shortness Verified 07/24/21 09:37 of Breath Home Medications Medication Instructions Recorded Confirmed Last Taken Type Albuterol Sulfate [Proair 90 mcg IH Q6H PRN 07/24/21 07/24/21 Unknown History Digihaler] Amiodarone HCl [Amiodarone 100 MG 400 mg PO 07/24/21 Unknown History TAB] Amlodipine Besylate [Norvasc] 10 mg PO 07/24/21 Unknown History Apixaban [Eliquis] 5 mg PO BID 07/24/21 07/24/21 Unknown History Atorvastatin [Lipitor] 40 mg PO QHS 07/24/21 07/24/21 Unknown History Brimonidine Tartrate [Brimonidine 1 drop OD Q8HR 07/24/21 07/24/21 Unknown History Tartrate 0.2%] Active Meds: Active Medications Acetaminophen (Acetaminophen 325 Mg Tab) 650 mg PO Q4H PRN PRN Reason: Pain MILD(1-3)/Fever >100.5/RICHARD Dextrose (Dextrose 50% In Water (25gm) 50 Ml Syringe) 0 ml IV Q30MIN PRN; Protocol PRN Reason: Hypoglycemia Famotidine (Famotidine 20 Mg/2 Ml Inj) 20 mg IV BID [facility] Last Admin: 07/25/21 09:33 Dose: 20 mg Heparin Sodium (Porcine) (Heparin 5,000 Unit/1 Ml Vial) 5,000 unit SUB-Q Q12HR [facility] Last Admin: 07/25/21 09:33 Dose: 5,000 unit Insulin Human Regular 100 (units/ Sodium Chloride) 100 mls @ 1 mls/hr IV TITR [facility]; Protocol Stop: 07/25/21 12:00 Last Titration: 07/25/21 08:14 Dose: 2 units/hr, 2 mls/hr Potassium Chloride/Dextrose/Sod Cl (D5w/0.45% Nacl/Kcl 20 Meq) 20 meq in 1,000 mls @ 125 mls/hr IV DIRECT [facility] Stop: 07/25/21 12:00 Last Admin: 07/24/21 23:19 Dose: 125 mls/hr Insulin Glargine (Insulin Glargine 100 Units/Ml) 20 units SUB-Q QAMDIAB [facility] Last Admin: 07/25/21 09:33 Dose: 20 units Insulin Human Lispro (Insulin Lispro 100 Unit/Ml) 0 unit SUB-Q ACHS [facility]; Protocol Metoclopramide HCl (Metoclopramide 10 Mg/2 Ml Inj) 10 mg IV Q6H PRN PRN Reason: Nausea And Vomiting Morphine Sulfate (Morphine 2 Mg/1 Ml Inj) 2 mg IV Q4H PRN PRN Reason: Pain, Moderate (4-6) Ondansetron HCl (Ondansetron 4 Mg/2 Ml Inj) 4 mg IV Q3H PRN PRN Reason: Nausea And Vomiting Sodium Chloride (Sodium Chloride 0.9% 10 Ml Flush Syringe) 10 ml IV BID [facility] Last Admin: 07/25/21 10:18 Dose: 10 ml Sodium Chloride (Sodium Chloride 0.9% 10 Ml Flush Syringe) 10 ml IV PRN PRN PRN Reason: LINE FLUSH Review of Systems All systems: negative Exam - Constitutional Vitals: Temp Pulse Resp BP Pulse Ox 97.7 F 76 17 114/66 93 07/25/21 08:04 07/25/21 10:10 07/25/21 10:10 07/25/21 10:10 07/25/21 10:10 General appearance: Present: no acute distress - EENT ENT: hearing intact - Neck Neck: Present: supple, normal ROM - Respiratory Respiratory effort: normal Respiratory: bilateral: CTA - Cardiovascular Rhythm: regular Results - Labs CBC & Chem 7: 07/24/21 10:13 07/25/21 05:40 Labs: Abnormal lab results 07/24/21 07/24/21 07/24/21 Range/Units 10:13 12:57 14:31 Sodium 133 L (137-145) mmol/L Chloride 94.8 L (98-107) mmol/L BUN 21 H (9-20) mg/dL Glucose 711 H* 620 H* (75-100) mg/dL POC Glucose 541 H (70-105) mg/dL Calcium (8.4-10.2) mg/dL Albumin (3.9-5) g/dL 07/24/21 07/24/21 07/24/21 Range/Units 14:56 15:37 16:43 Sodium 134 L (137-145) mmol/L Chloride 96.2 L (98-107) mmol/L BUN 21 H (9-20) mg/dL Glucose 573 H* (75-100) mg/dL POC Glucose 456 H 330 H (70-105) mg/dL Calcium (8.4-10.2) mg/dL Albumin (3.9-5) g/dL 07/24/21 07/24/21 07/24/21 Range/Units 18:24 19:01 20:43 Sodium (137-145) mmol/L Chloride (98-107) mmol/L BUN 23 H (9-20) mg/dL Glucose 143 H (75-100) mg/dL POC Glucose 115 H 182 H (70-105) mg/dL Calcium (8.4-10.2) mg/dL Albumin (3.9-5) g/dL 07/24/21 07/24/21 07/24/21 Range/Units 21:34 22:34 23:33 Sodium (137-145) mmol/L Chloride (98-107) mmol/L BUN 24 H (9-20) mg/dL Glucose 263 H (75-100) mg/dL POC Glucose 179 H 235 H (70-105) mg/dL Calcium (8.4-10.2) mg/dL Albumin (3.9-5) g/dL 07/24/21 07/25/21 07/25/21 Range/Units 23:36 00:29 01:29 Sodium (137-145) mmol/L Chloride (98-107) mmol/L BUN (9-20) mg/dL Glucose (75-100) mg/dL POC Glucose 241 H 232 H 238 H (70-105) mg/dL Calcium (8.4-10.2) mg/dL Albumin (3.9-5) g/dL 03/11/22 03/11/22 03/11/22 Range/Units 02:31 03:38 04:37 Sodium (137-145) mmol/L Chloride (98-107) mmol/L BUN (9-20) mg/dL Glucose (75-100) mg/dL POC Glucose 187 H 149 H 134 H (70-105) mg/dL Calcium (8.4-10.2) mg/dL Albumin (3.9-5) g/dL 07/25/21 07/25/21 07/25/21 Range/Units 05:24 05:40 06:36 Sodium (137-145) mmol/L Chloride (98-107) mmol/L BUN 22 H (9-20) mg/dL Glucose 139 H (75-100) mg/dL POC Glucose 131 H 143 H (70-105) mg/dL Calcium 8.3 L (8.4-10.2) mg/dL Albumin 3.3 L (3.9-5) g/dL 07/25/21 07/25/21 07/25/21 Range/Units 07:42 08:06 08:59 Sodium (137-145) mmol/L Chloride (98-107) mmol/L BUN (9-20) mg/dL Glucose (75-100) mg/dL POC Glucose 152 H 163 H 140 H (70-105) mg/dL Calcium (8.4-10.2) mg/dL Albumin (3.9-5) g/dL - Imaging and Cardiology Chest x-ray: image reviewed Assessment and Plan 60 y/o male with HHNK, now resolved 1. Insulin therapy as outpatient 2. Family requests to speak with CM 3. Follow up with Cards and PCP 4. No objection to discharge.
[2021-07-25] MEDS: INSULIN LISPRO 100 UNIT/ML SUB-Q SCH ×2 (12:12→16:39)
[2021-07-25 15:23] VITALS: BP 110/59
== END 2021-07-25 17:00 | disposition home or self-care (01) ==
LOC: ED 09:15 → INTOOBSV 16:35 → CC1 16:35
PROVIDERS: ADMIT Internal Medicine; ATTEND Internal Medicine
DX: E11.00 Type 2 diabetes mellitus with hyperosmolarity without nonketotic hyperglycemic-hyperosmolar coma (NKHHC) (principal); E87.1 Hypo-osmolality and hyponatremia; E83.42 Hypomagnesemia; E11.65 Type 2 diabetes mellitus with hyperglycemia; E44.1 Mild protein-calorie malnutrition; I11.0 Hypertensive heart disease with heart failure; I50.9 Heart failure, unspecified; J45.909 Unspecified asthma, uncomplicated; F25.1 Schizoaffective disorder, depressive type; R53.1 Weakness; Z79.899 Other long term (current) drug therapy; Z98.890 Other specified postprocedural states; Z79.4 Long term (current) use of insulin; Z68.31 Body mass index [BMI] 31.0-31.9, adult
CPT/HCPCS: 36415; 71045; 80053; 81001; 82010; 82805; 82962; 83735; 83880; 84100; 84484; 85025; 93005; 96365; 96366; 96367; 96368; 96372; 96375; 96376; 99285; G0378; J1644; J3475; J3480; J3490; J7040; J7042; 80048; Q0177; Q9967; J1815